=== PATIENT | female | born 1970 | race Caucasian/White ===

== ENCOUNTER → 2023-08-15 13:43 | Outpatient (CLI) | payer BC, SELFPAY ==
--- NOTE | ~2023-08-15 | US_ITS ---
EXAMINATION: US transvaginal DATE: 08/15/2023 14:09 INDICATION: Postmenopausal bleeding TECHNIQUE: Multiple endovaginal sonographic images of the pelvis were obtained. COMPARISON: None. FINDINGS: The uterus measures 7.3 x 3.5 x 3.3 cm. The endometrial complex measures 18 mm. The ovaries are not visualized however no adnexal abnormality is seen. There is no free fluid in the pelvis. IMPRESSION: 1. Endometrial thickening which may be due to hyperplasia, polyp, or malignancy. Endometrial sampling is recommended. Reviewed, dictated and finalized at location F. EATION PROGRAMMER IMPRESSION: 1. Endometrial thickening which may be due to hyperplasia, polyp, or malignancy . Endometrial sampling is recommended.
== END ==
PROVIDERS: PCP Advanced Practice Midwife; Visit Provider Advanced Practice Midwife
DX: N95.0 Postmenopausal bleeding (principal); N93.8 Other specified abnormal uterine and vaginal bleeding
CPT/HCPCS: 76830

== ENCOUNTER 2023-09-29 13:04 | Emergency (ER) | payer BC, SELFPAY ==
[2023-09-29 13:09] VITALS: BP 133/59; PULSE 79; RESP 16; TEMP 36.6; O2SAT 98
--- NOTE | 2023-09-29 13:29 | ED.GENADULT ---
HPI - General Adult General Chief complaint: Upper Respiratory Infection Stated complaint: Ear pain;Cough Time Seen by Provider: 09/29/23 13:29 Source: patient, RN notes reviewed and old records reviewed Mode of arrival: ambulatory Limitations: no limitations History of Present Illness HPI narrative: 53-year-old female presents to the [facility] with complaints of cough and continued right ear pain. Patient reports that she was seen and treated for an ear infection Per medical record Treated on 09/18 with doxycycline, 09/21 with Medrol Dosepak Patient states that her ear pain still is not better Onset (ago): week(s) (2) Related Data Home Medications Medication Instructions Recorded Confirmed acetaminophen 325 mg capsule 325 mg PO Q6H PRN 08/07/23 09/28/23 (Tylenol) cetirizine 10 mg capsule (Zyrtec) 10 mg PO DAILY PRN 08/07/23 09/28/23 naproxen sodium 220 mg capsule 220 mg PO BID PRN 08/07/23 09/28/23 (Aleve) Allergies Allergy/AdvReac Type Severity Reaction Status Date / Time letrozole Allergy Severe muscle Verified 09/28/23 15:07 contraction Iodinated Contrast Media Allergy Mild Unknown Verified 09/28/23 15:07 Penicillins Allergy Unknown Unknown Verified 09/28/23 15:07 Review of Systems Review of Systems: All systems reviewed & are unremarkable except as noted in HPI and below Constitutional: Constitutional: Reports no additional constitutional complaints Eyes: Eyes: Reports no additional eye complaints ENT: Reports as per HPI and Reports otalgia Cardiovascular: Cardiovascular: Reports no additional cardiovascular complaints, Denies chest pain and Denies dyspnea Respiratory: Respiratory: Reports as per HPI, Denies chest congestion, Reports cough and Denies dyspnea Gastrointestinal: Gastrointestinal: Reports no additional gastrointestinal complaints, Denies abdominal pain, Denies nausea and Denies vomiting Musculoskeletal: Musculoskeletal: Reports no additional musculoskeletal complaints Integumentary/Breasts: Skin/Breast: Reports system reviewed and no additional complaints, except as docu Neurologic: Reports system reviewed and no additional complaints, except as documented Psychiatric: Psychiatric: Reports no additional psychiatric complaints Allergic/Immunologic: Allergic/Immunologic: Reports no additional allergic/immunologic complaints PMFSH Past Medical History Medical History Essential hypertension History of gastric ulcer Malignant neoplasm of right female breast Obesity MARTI treated with BiPAP PAT (paroxysmal atrial tachycardia) Family History Family History Sibling Patient's sister is in good health Family history of diabetes mellitus in first degree relative Mother Hypertension Family history of diabetes mellitus in first degree relative Family history of lung cancer Family history of coronary artery disease Social History Social History Smoking status: Never smoker Second hand tobacco smoke exposure: No Alcohol intake: never Substance use: never Do You Feel Safe in your Home?: Yes Lack of Transportation: No Lack of Food: Never True Current Housing: I Have Housing Concerned About Future Housing: No Difficulty Paying Gas/Electric Bills: No Difficulty Paying for Meds: No Currently Unemployed: No Education: Don't Know Difficulty w/ Childcare or Family Care: No Living arrangements: with family Occupation/Education: occupation Gender identity (if verbalized by the patient): Female Sexual Orientation (if Verbalized by the Patient): Straight or Heterosexual Comments At the time of my signature, I reviewed and agree with the nursing past medical, surgical, social, and family history. There is no relevant family history pertinent to the patient complaint. Exam Const: Genera
== END 2023-09-29 14:27 | disposition home or self-care (01) ==
PROVIDERS: Emergency Provider Nurse Practitioner; PCP Family Medicine
DX: H66.91 Otitis media, unspecified, right ear (principal); R09.82 Postnasal drip; I10 Essential (primary) hypertension; G47.33 Obstructive sleep apnea (adult) (pediatric); Z85.3 Personal history of malignant neoplasm of breast
CPT/HCPCS: 99213; G0463

== ENCOUNTER 2023-10-17 08:43 | Outpatient (CLI) | payer BC, SELFPAY ==
--- NOTE | ~2023-10-17 | XR_ITS ---
Clinical Indication: Cough PA and lateral views of the chest: Comparison: 08/12/2014 Findings: There is linear scarring or atelectasis left midlung. The lungs are otherwise clear, withou t evidence of focal consolidation or pleural effusion. Cardiomediastinal silhouette is within normal limits. Bones and soft tissues are unremarkable. Impression: Linear scar or atelectasis left midlung, otherwise clear lungs. Reviewed, dictated and finalized at location . EN PRINTING PRESS OPERATOR Impression: Linear scar or atelectasis left midlung, otherwise clear lungs.
== END 2023-10-17 08:44 | disposition home or self-care (01) ==
LOC: ANHIMG 08:45
PROVIDERS: PCP Family Medicine; Visit Provider Physician Assistant Medical
DX: R05.9 Cough, unspecified (principal); R06.2 Wheezing; R91.8 Other nonspecific abnormal finding of lung field
CPT/HCPCS: 71046

== ENCOUNTER 2023-10-26 07:33 | Outpatient (CLI) | payer BC, SELFPAY ==
--- NOTE | ~2023-10-26 | NM_ITS ---
EXAMINATION: NM blake stress w perfusion DATE: 10/26/2023 13:23 INDICATION: Dyspnea TECHNIQUE: Rest images were obtained following intravenous administration of 10 mCi Tc99m tetrofosmin (Myoview). The patient was infused intravenously with Lexiscan (Regadenoson). Then, 31.2 mCi Tc99m t etrofosmin (Myoview) was administered intravenously, and stress images were obtained. Data was recons tructed into short axis and horizontal and vertical long axis SPECT images. Gated SPECT images were a lso obtained. COMPARISON: None. FINDINGS: There is a region of moderately decreased activity along the inferior wall on the rest imag es which decreases in size and largely normalizes on the stress images which favors that medication a ttenuation artifact over mild infarct in the apical inferior and mid inferior segments. No reversible ischemia. There is normal left ventricular chamber size, wall motion and ejection fraction. Left ve ntricular ejection fraction measures >70%. IMPRESSION: 1. Small region of decreased activity at the apical inferior and mid inferior segments which appears larger and with greater degree of decrease on the rest images which is significantly more likely to r epresent diaphragmatic attenuation artifact rather than infarct. No reversible ischemia. 2. Left ventricular ejection fraction measuring >70%. Reviewed, dictated and finalized at location A. OYEE'S REPRESENTATIVE IMPRESSION: 1. Small region of decreased activity at the apical inferior and mid inferior s egments which appears larger and with greater degree of decrease on the rest im ages which is significantly more likely to represent diaphragmatic attenuation artifact rather than infarct. No reversible ischemia. 2. Left ventricular ejection fraction measuring >70%.
--- NOTE | 2023-10-26 07:48 | EST_ITS ---
Patient Info Name: Kaycee De Luna Age: 53 years : 1970 Gender: Female Ht: 63 in Wt: 400 lbs BSA: 2.97 m2 HR: 64 bpm BP: 130 / 69 mmHg Heart Rhythm: Sinus Rhythm Exam Date: 10/26/2023 10:04 AM Exam Location: Echo Lab Patient Status: Outpatient Admit Date: 10/26/2023 Staff Ordering Physician: Edwin Holguin DO Attending Provider: Edwin Holguin DO Exercise Technologist: Randi Mendez CT Exercise Physician: Edwin Holguin DO Exam Type: CA stress blake w NM Study Info Indications R06.09 - Other forms of dyspnea A regadenoson stress test was performed. Summary 1. 1. Negative lexiscan stress test for ischemic ST changes by ECG criteria. 2. 2. Stable hemodynamics throughout the test. 3. 3. Nuclear scan to follow and will be reported separately. Please correlate with it. 4. 4. Patient informed of the above results. Protocol: Lexiscan Stress ECG Details Stage: REST Duration (min): 1 min : 51 sec HR (bpm): 64 SBP (mmHg): 130 DBP (mmHg): 69 Stage: REST Duration (min): 6 min : 2 sec HR (bpm): 65 SBP (mmHg): 130 DBP (mmHg): 69 Stage: STAGE 1 Duration (min): 1 min : 0 sec HR (bpm): 102 SBP (mmHg): 135 DBP (mmHg): 68 Stage: RECOVERY Duration (min): 1 min : 0 sec HR (bpm): 88 SBP (mmHg): 135 DBP (mmHg): 68 Stage: RECOVERY Duration (min): 2 min : 0 sec HR (bpm): 82 SBP (mmHg): 135 DBP (mmHg): 68 Stage: RECOVERY Duration (min): 3 min : 0 sec HR (bpm): 80 SBP (mmHg): 103 DBP (mmHg): 64 Stage: RECOVERY Duration (min): 3 min : 10 sec HR (bpm): 80 SBP (mmHg): 103 DBP (mmHg): 64 Rest HR: 65 bpm Peak HR: 102 bpm Rest Sys BP: 130 mmHg Peak Sys BP: 135 mmHg Max Pred HR: 168 bpm % Max Pred HR: 61 % Target HR: 143 bpm Max RPP: 13,770 bpm*mmHg Termination Reason: Completed protocol Cardiac Symptoms: Shortness of breath Total Time: 1 min : 0 sec Rest Petty BP: 69 mmHg Peak Petty BP: 68 mmHg Total Dose: 0.4 mg Resting ECG Sinus rhythm. Stress ECG No ST changes. Arrhythmias None. Report Signatures
--- NOTE | 2023-10-26 07:48 | ECHO_ITS ---
Patient Info Name: Kaycee De Luna Age: 53 years : 1970 Gender: Female Ht: 63 in Wt: 400 lbs BSA: 2.97 m2 HR: 78 bpm BP: 171 / 75 mmHg Technical Quality: Good Exam Date: 10/26/2023 7:53 AM Exam Location: Echo Lab Patient Status: Outpatient Admit Date: 10/26/2023 Staff Ordering Physician: Edwin Holguin DO Lap Layer: Mela Muir RDCS Attending Provider: Edwin Holguin DO Referring Physician: Ezio KELLY; Exam Type: CA echo doppler color flow Study Info Indications R06.09 - Other forms of dyspnea Complete two-dimensional, color flow and Doppler transthoracic echocardiogram is performed. Summary 1. Complete two-dimensional, color flow and Doppler transthoracic echocardiogram is performed. 2. Left ventricular chamber dimension is normal. 3. Left ventricular systolic function is normal, estimated at 65-70%. 4. The left ventricular diastolic function is abnormal. 5. E/e' 14 is mildly elevated. 6. Global longitudinal strain is normal at -18.2%. 7. Left atrial chamber dimension is mildly enlarged. 8. There is mild aortic valve sclerosis. 9. The mitral valve has mildly calcified annulus. 10. There is trace tricuspid valve regurgitation. 11. Mild pulmonary hypertension, estimated pulmonary arterial systolic pressure is 42 mmHg. Left Ventricle E/e' 14 is mildly elevated. Global longitudinal strain is normal at -18.2%. Left ventricular chamber dimension is normal. Left ventricular systolic function is normal, estimated at 65-70%. The left ventricular diastolic function is abnormal. Right Ventricle Right ventricular systolic function is normal and with normal TAPSE 2.6 cm. Right ventricular chamber dimension is normal. Left Atria Left atrial chamber dimension is mildly enlarged. Right Atria Right atrial chamber dimension is normal. Aortic Valve The aortic valve is trileaflet. There is mild aortic valve sclerosis. There is no aortic valve stenosis. There is no aortic valve regurgitation. Pulmonic Valve There is no pulmonic regurgitation. Mitral Valve The mitral valve has mildly calcified annulus. There is no mitral valve stenosis. There is no mitral valve regurgitation. Tricuspid Valve There is trace tricuspid valve regurgitation. Mild pulmonary hypertension, estimated pulmonary arterial systolic pressure is 42 mmHg. Pericardium/Pleural There is no pericardial effusion. Inferior Vena Cava Normal inferior vena cava with >50% collapse upon inspiration consistent with normal right atrial pressure, 5 mmHg. Aorta The aortic root size at the sinus of Valsalva is normal. Left Ventricular Outflow Tract Name Value Normal LVOT 2D LVOT Diameter 2.0 cm LVOT Doppler LVOT Peak Gradient 13 mmHg LVOT Mean Gradient 6 mmHg LVOT VTI 37 cm LVOT VTI/AV VTI Ratio 0.8 LVOT Stroke Volume 113 ml LVOT CO 8.1 l/min LVOT CI 2.7 l/min/m2 Pulmonic Valve Name Value Normal --------
== END 2023-10-26 07:34 | disposition home or self-care (01) ==
LOC: ANHCARD 07:36
PROVIDERS: PCP Family Medicine; Visit Provider Internal Medicine Cardiovascular Disease
DX: R06.09 Other forms of dyspnea (principal); R94.39 Abnormal result of other cardiovascular function study; I27.20 Pulmonary hypertension, unspecified; I08.3 Combined rheumatic disorders of mitral, aortic and tricuspid valves
CPT/HCPCS: 78452; 93017; 93306; A9502; J2785